=== PATIENT | female | born 1990 | race Hispanic/Latino ===

== ENCOUNTER 2019-08-27 18:58 | Emergency (ER) | payer SELFPAY ==
--- OUTSIDE RECORDS SUMMARY | 2019-08-27 19:00 | XMS REPORT ---
:1990 Author Organization [facility] Address [address] [place] [id number] Phone Allergies, Adverse Reactions, Alerts Allergy Name Reaction Description Start Date Severity Status Provider No Known Allergies Mae Riggs MA Conditions or Problems Problem Name Problem Onset Status Entry Provider Comment Standard Annotate Code Date Date Description Nausea 787.02 Active Chelsie Nausea alone / Prachi BLACKBURN BMI Active Chelsie Body Mass Index 24.0-24.9 Prachi BLACKBURN between 19-24, adult IUD removal V25.12 Active Chelsie Encounter for / Prachi BLACKBURN removal of intrauterine contraceptive device Pelvic pain 625.9 Active Chelsie Unspecified Prachi BLACKBURN symptom associated with female genital organs Vaginal 623.5 Active Chelsie Leukorrhea, not discharge Prachi BLACKBURN specified as infective Medication List Medication Instructions Start Stop Generic NDC Status Provider Patient Date Date Name Instruction FLAGYL 500 1 Tab PO METRONIDAZOLE [id number] Active Chelsie Active MG ORAL BID x 7 Prachi BLACKBURN TABLET Days Vital Signs Date Name Value Unit Range Description blood pressure, diastolic 64 mm[Hg] BP moore blood pressure, systolic 106 mm[Hg] BP sys height E&M 64 [in_us] Bdy height pulse rate E&M 61 /min Heart rate temperature E&M 98.2 [degF] Body temperature weight E&M 141 [lb_av] Weight Measured blood pressure, diastolic 75 mm[Hg] BP moore blood pressure, systolic 110 mm[Hg] BP sys height E&M 64 [in_us] Bdy height pulse rate E&M 68 /min Heart rate temperature E&M 98.0 [degF] Body temperature weight E&M 142 [lb_av] Weight Measured blood pressure, diastolic 89 mm[Hg] BP moore blood pressure, systolic 120 mm[Hg] BP sys height E&M 64 [in_us] Bdy height pulse rate E&M 70 /min Heart rate temperature E&M 98.0 [degF] Body temperature weight E&M 142.25 [lb_av] Weight Measured blood pressure, diastolic 70 mm[Hg] BP moore blood pressure, systolic 107 mm[Hg] BP sys height E&M 64 [in_us] Bdy height pulse rate E&M 71 /min Heart rate respiratory rate E&M 17 /min Resp rate temperature E&M 98.2 [degF] Body temperature weight E&M 141 [lb_av] Weight Measured Diagnostic Results Date Name Value Unit Range Description Office Visit: Acute Visit #8 - Urinalysis urine color yellow Lab Report: Ct, Ng, Trich vag by SHUBHAM, Urine Culture, Routine, Result - Microbiology Neisseria gonorrhoeae DNA probe Negative Negative Lab Report: Urine Culture, Routine, Result - Urinalysis urine culture No growth Office Visit: Acute Visit #8 - Urinalysis bilirubin, urine negative glucose, urine, semiquantitative negative protein, urine, semiquantitative (dipstick) negative Office Visit: Acute Visit #11 - Chemistry beta HCG, urine, semiquantitative negative Lab Report: Vaginitis/Vaginosis, DNA Probe - Urinalysis trichomonas vaginalis, urine Negative Negative Office Visit: Acute Visit #8 - Urinalysis blood in urine (hemoglobin) by dipstick trace appearance, urine clear Lab Report: Ct, Ng, Trich vag by SHUBHAM, Urine Culture, Routine, Result - Lab chlamydia DNA probe Negative Negative Office Visit: Acute Visit #8 - Urinalysis leukocyte esterase, urine, by dipstick negative urobilinogen, urine, semiquantitative (dipstick) 0.2 specific gravity, urine 1.025 pH, urine, semiquantitative 6.5 nitrite, urine, semiquantitative negative ketones, urine, by test strip negative Encounters Date Encounter Provider Code Facility Est Patient Exp Chelsie Velarde MD CPT-04249 [facility] 14:54:36 CDT Problem - 47932 Est Patient Exp Chelsie Velarde MD CPT-42384 [facility] 09:10:34 CDT Problem - 64269 Est Patient Exp Chelsie Velarde MD CPT-65047 [facility] 11:35:45 CDT Problem - 91343 New Patient Detailed Chelsie Velarde MD CPT-78155 [facility] 09:26:33 DOCUMENT PHOTOGRAPHER - 00194 Procedures Code Procedure Name Date Entry Date Standard Description CPT-41755 Urinalysis - Dip only - In [place] 09:10:32 CDT CPT-78371 Urinalysis - Dip only - In [place] 11:35:45 CDT CPT-00765 Urinalysis - - In [place] 11:35:43 CDT CPT-53309 IUD Removal 09:26:34 DOCUMENT PHOTOGRAPHER
--- OUTSIDE RECORDS SUMMARY | 2019-08-27 19:00 | XMS REPORT ---
:1990 Author Name Admin, [place] Address Unavailable Unavailable , PROBLEMS Condition Status Date Provider Notes Less than 8 weeks gestation of active Martell Jensen Supervision of normal multigravida active Martell Jensen , first trimester BMI 25 - 25.9, adult active Martell Jensen Nausea active Chelsie Prachi Pelvic pain active Chelsie Prachi Vaginal discharge active Chelsie Prachi IUD removal active Chelsie [place] BMI 24.0-24.9 active Chelsie [place] ENCOUNTERS Date Type Provider Location Encounter Diagnosis - Ambulatory Martell Jensen [facility] Encounter Martell Jensen - Ambulatory Martell Jensen [facility] BMI 25 - 25.9, Encounter Martell Jensen adultSupervision of Genesis Otto normal multigravida , first trimesterLess than 8 weeks gestation of - Ambulatory Chelsie [place] [facility] [facility] Encounter Chelsie [place] [employer] - Ambulatory Chelsie [place] [facility] Encounter Chelsie [place] BROADCAST TRAFFIC COORDINATOR Mae Riggs - Ambulatory Chelsie Prachi [place] [facility] Encounter Chelsie [place] BROADCAST TRAFFIC COORDINATOR - Ambulatory Chelsie [place] Encounter Chelsie Prachi BROADCAST TRAFFIC COORDINATOR [facility] - Ambulatory [place] Encounter Chelsie [place] [facility] - Ambulatory Chelsie [place] Encounter Chelsie Prachi [facility] - Ambulatory Chelsie Prachi [place] Encounter Chelsie [place] [facility] - Ambulatory Chelsie [place] Encounter Chelsie [place] BROADCAST TRAFFIC COORDINATOR - Ambulatory Shanell Casper [facility] Encounter - Ambulatory Chelsie Prachi [place] Encounter Chelsie [place] BROADCAST TRAFFIC COORDINATOR Jeaneth Gutierrez - Ambulatory Chelsie Prachi [place] Encounter Chelsie [place] - Ambulatory Chelsie [place] Encounter Chelsie Prachi [facility] - Ambulatory Chelsie Prachi [place] Encounter Chelsie Prachi BROADCAST TRAFFIC COORDINATOR - Ambulatory Chelsie Prachi [place] Encounter Chelsie [place] BROADCAST TRAFFIC COORDINATOR - Ambulatory Chelsie [place] Nausea Encounter Chelsie [place] BROADCAST TRAFFIC COORDINATOR Regine Cao Jeaneth Gutierrez - Ambulatory Mae [place] UNK Encounter Oneil Chelsie BROADCAST TRAFFIC COORDINATOR [place] Chelsie Prachi - Ambulatory Chelsie Prachi [place] UN[place] Encounter Chelsie [place] - Ambulatory Chelsie Prachi [place] UN[place] Encounter Chelsie [place] - Ambulatory Chelsie Prachi [place] UN[place] Encounter Chelsie [place] [facility] - Ambulatory Chelsie [place] UNK Encounter Chelsie [place] [facility] - Ambulatory Chelsie [place] UNK Encounter Chelsie Velarde BROADCAST TRAFFIC COORDINATOR - Ambulatory Chelsie [place] BMI 24.0-24.9IUD Encounter Chelsie Velarde BROADCAST TRAFFIC COORDINATOR removalVaginal Charla Minor dischargePelvic pain VITAL SIGNS No Information Available Allergies No Known Allergy Information REASON FOR REFERRAL No Information Available RESULTS Date Observation Value Provider Reference Interpretation Location Range Herpes Simplex no Genesis Otto Virus Genital " test, home Genesis Otto type trichomonas Negative [facility] vaginalis, urine " urine culture No growth [facility] blood in urine trace Jeaneth Gutierrez /09 (hemoglobin) by dipstick " pH, urine, 6.5 Jeaneth Gutierrez semiquantitative " specific gravity, 1.025 Jeaneth Gutierrez urine " glucose, urine, negative Jeaneth Gutierrez semiquantitative " bilirubin, urine negative Jeaneth Gutierrez " ketones, urine, by negative Jeaneth Gutierrez test strip " protein, urine, negative Jeaneth Gutierrez semiquantitative (dipstick) " urobilinogen, 0.2 Jeaneth Gutierrez urine, semiquantitative (dipstick) " nitrite, urine, negative Jeaneth Gutierrez semiquantitative " leukocyte esterase, negative Jeaneth Gutierrez urine, by dipstick " appearance, urine clear Jeaneth Gutierrez " urine color yellow Jeaneth Gutierrez urine culture No growth [facility] " Neisseria Negative [facility] Negative gonorrhoeae DNA probe " chlamydia DNA probe Negative [facility] Negative specific gravity, 1.020 Jeaneth Gutierrez urine " pH, urine, 6.0 Jeaneth Gutierrez semiquantitative " beta HCG, urine, negative Jeaneth Gutierrez semiquantitative " glucose, urine, negative Jeaneth Gutierrez semiquantitative " bilirubin, urine negative Jeaneth Gutierrez " ketones, urine, by negative Jeaneth Gutierrez test strip " blood in urine 5-10.valid Jeaneth Gutierrez (hemoglobin) by dipstick " protein, urine, negative Jeaneth Gutierrez semiquantitative (dipstick) " urobilinogen, negative Jeaneth Gutierrez urine, semiquantitative (dipstick) " nitrite, urine, negative Jeaneth Gutierrez semiquantitative " leukocyte esterase, negative Jeaneth Gutierrez urine, by dipstick " appearance, urine clear Jeaneth Gutierrez " urine color yellow Jeaneth Gutierrez Neisseria Negative [facility] Negative gonorrhoeae DNA probe " chlamydia DNA probe Negative [facility] Negative " trichomonas Negative [facility] Negative vaginalis, urine urine culture MUG [facility] HISTORY OF IMMUNIZATIONS No Information Available HISTORY OF MEDICATION USE Medication Instructions Dates Provider Comments KEFLEX 500 MG ORAL 1 tab By Mouth Three Martell Jensen CAPSULE Times a Day x 5 days FLAGYL 500 MG ORAL 1 Tab PO BID x 7 Days - Martell Jensen TABLET SOCIAL HISTORY Date Observation Value Provider smoking/tobacco cessation, Complete Martell Jensen patient education and counseling " currently in sexual only one partner at a time Genesis Fam relationship with " cat exposure during no Genesis Otto " Have you traveled to any No Genesislexa Otto zika virus infected areas? drug use, illicit Never Mae Riggs " alcohol use Never Mae Riggs " social history reviewed E&M reviewed today Mae Riggs " sexual orientation Heterosexual Mae Riggs " assessment of health Adequate Mae Oneil literacy ([facility] 2014 Standards, 3C10) " is there any chance that No Mae Oneil you could be ? " passive cigarette smoke No Mae Oneil exposure " smoking status never smoker Mae Riggs " Exercise Program Referral T Mae Riggs " Weight Management T Mae Oneil Counseling Provided " Nutrition intervention T Mae Oneil drug use, illicit Never Jeaneth Gutierrez " alcohol use Never Jeaneth Gutierrez " social history reviewed E&M reviewed today Jeaneth Gutierrez " sexual orientation Heterosexual Jeaneth Gutierrez " assessment of health Adequate Jeaneth Gutierrez literacy ([facility] 2014 Standards, 3C10) " is there any chance that No Jeaneth Gutierrez you could be ? " passive cigarette smoke No Jeaneth Gutierrez exposure " smoking status never smoker Jeanteh Gutierrez " Exercise Program Referral T Jeaneth Gutierrez " Weight Management T Jeaneth Gutierrez Counseling Provided " Nutrition intervention T Jeaneth Gutierrez patient considered to be No Jeaneth Gutierrez homeless " drug use, illicit Never Jeaneth Gutierrez " alcohol use Never Jeaneth Gutierrez " social history reviewed E&M reviewed today Jeaneth Gutierrez " sexual orientation Heterosexual Jeaneth Gutierrez " assessment of health Adequate Jeaneth Gutierrez literacy ([facility] 2014 Standards, 3C10) " is there any chance that No Jeaneth Gutierrez you could be ? " passive cigarette smoke No Jeaneth Gutierrez exposure " smoking status never smoker Jeaneth Gutierrez " Exercise Program Referral T Jeaneth Gutierrez " Weight Management T Jeaneth Gutierrez Counseling Provided " Nutrition intervention T Jeaneth Gutierrez " assessment of health Adequate Charla Minor literacy ([facility] 2014 Standards, 3C10) " is there any chance that No Charla Minor you could be ? " passive cigarette smoke No Charla Minor exposure " smoking status never smoker Charla Minor FUNCTIONAL STATUS No Information Available MENTAL STATUS Date Observation Value Provider assessment of mood and affect no depression Martell Jensen E&M " mental status examination: recent and remote memory Martell Jensen recall E&M intact " mental status examination: alert Martell Jensen orientation E&M " assessment of judgment and normal judgement and Martell Jensen insight E&M insight assessment of mood and affect no depression, anxiety, Chelsie Prachi E&M or agitation " Generalized Anxiety Disorder 0 Mae Oneil Questionnaire - Question 2 " Generalized Anxiety Disorder 0 Mae Oneil Questionnaire - Question 1 assessment of mood and affect no depression, anxiety, Chelsie [place] E&M or agitation assessment of mood and affect no depression, anxiety, Chelsie [place] E&M or agitation Generalized Anxiety Disorder 0 Charla Minor Questionnaire - Question 2 " Generalized Anxiety Disorder 0 Charla Minor Questionnaire - Question 1 MEDICAL EQUIPMENT No Information Available FAMILY HISTORY No Information Available INSURANCE PROVIDERS Payer name Policy type / Coverage type Covered alliance party ID Sliding Fee - Cat 1 [employer] insurance [employer] [id number] Family Planning Program Medicaid [id number] ADVANCE DIRECTIVES No Information Available TREATMENT PLAN Date Name Urine Culture, Routine RPR, Rfx Qn RPR/Confirm TP HIV 1/2 ANTIGEN/ANTIBODY, FOURTH GENERATION W/RFL HBsAg Screen Gc/Ct/Trich CBC With Differential/Platelet ANTIBODY SCREEN, RBC W/REFL ID, TITER AND AG ABO Grouping and Rho(D) Typing Vaginitis/Vaginosis, DNA Probe (Affirm) ([facility]) Urine Culture, Routine Helicobacter Pylori Urea Breath Test H. pylori Stool Ag, EIA Helicobacter Pylori Urea Breath Test Urine Culture, Routine Gc/Ct/Trich (Urine) Urine Culture, Routine Vaginitis/Vaginosis, DNA Probe (Affirm) ([facility]) Gc/Ct/Trich - Ultrasound of Uterus- 1st trimester New Patient Detailed - 26761 New Patient Detailed - 21567 Vaccines Ordered - Print Consent/Declination Forms Est Patient Exp Problem - 58264 Est Patient Exp Problem - 93324 Urinalysis - Dip only - In House Est Patient Exp Problem - 71215 Urinalysis - Dip only - In House Urinalysis - - In House IUD Removal New Patient Detailed - 10041 HISTORY OF PROCEDURES Procedure Date Procedure Name Provider Procedure Notes Status Ultrasound of Martell Jensen completed Uterus- 1st trimester Vaccines Ordered - Print Martell Jensen completed Consent/Declination Forms Urinalysis - Dip only - In Chelsie Prachi completed House Urinalysis - Dip only - In Chelsie Prachi completed House Urinalysis - - In Chelsie Prachi completed House IUD Removal Chelsie [place] completed GOALS No Information Available HEALTH CONCERNS No Information Available
--- OUTSIDE RECORDS SUMMARY | 2019-08-27 19:01 | XMS REPORT ---
:1990 Author Name Admin, [place] Address Unavailable Unavailable , PROBLEMS Condition Status Date Provider Notes Less than 8 weeks gestation of active Martell Jensen Supervision of normal multigravida active Martell Jensen , first trimester BMI 25 - 25.9, adult active Matrell Jensen Nausea active Chelsie Utqi[place]vik Pelvic pain active Chelsie Utqi[place]vik Vaginal discharge active Chelsie [place] IUD removal active Chelsie [place] BMI 24.0-24.9 active Chelsie Prachi ENCOUNTERS Date Type Provider Location Encounter Diagnosis - Ambulatory Martell Jensen [facility] UNK Encounter Martell Jensen [facility] - Ambulatory Martell Jensen [facility] OB UNK Encounter Martell Jensen [facility] - Ambulatory Martell Jensen [facility] OB UNK Encounter Martell Jensen [facility] - Ambulatory Martell Jensen [facility] OB UNK Encounter Martell Jensen - Ambulatory Martell Jensen [facility] OB BMI 25 - 25.9, Encounter Martell Jensen adultSupervision of Genesis Otto normal multigravida , first trimesterLess than 8 weeks gestation of - Ambulatory Chelsie Prachi [place] UNK Encounter Chelsie Utqiagvik TECHNICAL SUPPORT TECHNICIAN - Ambulatory Chelsie Prachi [place] UNK Encounter Chelsie Prachi TECHNICAL SUPPORT TECHNICIAN Mae Riggs - Ambulatory Chelsie Utqiagvik [place] UNK Encounter Hcelsie Utqiagvik TECHNICAL SUPPORT TECHNICIAN - Ambulatory Chelsie Utqiagvik [place] UNK Encounter Chelsie Prachi TECHNICAL SUPPORT TECHNICIAN [facility] - Ambulatory Chelsie Utqiagvik [place] UNK Encounter Chelsie Utqiagvik [facility] - Ambulatory Chelsie Utqiagvik [place] UNK Encounter Chelsie Utqiagvik [facility] - Ambulatory Chelsie Utqiagvik [place] UNK Encounter Chelsie Utqiagvik [facility] - Ambulatory Chelsie Utqiagvik [place] UNK Encounter Chelsie Prachi TECHNICAL SUPPORT TECHNICIAN - Ambulatory Shanell Freemand [facility] OB UNK Encounter - Ambulatory Chelsie Utqiagvik [place] UNK Encounter Chelsie Prachi TECHNICAL SUPPORT TECHNICIAN Jeaneth Gutierrez - Ambulatory Chelsie Prachi [place] UNK Encounter Chelsie Utqiagvik - Ambulatory Chelsie Utqiagvik [place] UNK Encounter Chelsie Utqiagvik [facility] - Ambulatory Chelsie Utqiagvik [place] UNK Encounter Chelsie Utqiagvik TECHNICAL SUPPORT TECHNICIAN - Ambulatory Chelsie Utqiagvik [place] UNK Encounter Chelsie Prachi TECHNICAL SUPPORT TECHNICIAN - Ambulatory Chelsie Utqi[place]vik [place] Nausea Encounter Chelsie Utqi[place] TECHNICAL SUPPORT TECHNICIAN Regine Cao Jeaneth Gutierrez - Ambulatory Mae [place] UNK Encounter Oneil Chelsie TECHNICAL SUPPORT TECHNICIAN Prachi Chelsie Prachi - Ambulatory Chelsie Utqiagvik [place] UNK Encounter Chelsie Utqiagvik - Ambulatory Chelsie Utqiagvik [place] UNK Encounter Chelsie Prachi - Ambulatory Chelsie [place] UNK Encounter Chelsie Velarde [facility] - Ambulatory Chelsie Skaggs UNK Encounter Chelsie Velarde [facility] - Ambulatory Chelsie Skag[place] UNK Encounter Chelsie Garciat TECHNICAL SUPPORT TECHNICIAN - Ambulatory Chelsie Skaggs BMI 24.0-24.9IUD Encounter Chelsie Velarde TECHNICAL SUPPORT TECHNICIAN removalVaginal Charla Minor dischargePelvic pain VITAL SIGNS No Information Available Allergies No Known Allergy Information REASON FOR REFERRAL No Information Available RESULTS Date Observation Value Provider Reference Interpretation Location Range urine culture No growth [facility] urine culture No growth [facility] hepatitis B surface Negative [facility] Negative antigen " Rh antibody Negative [facility] Negative " HIV-CMIA Non [facility] Non Reactive (Chemiluminescent Reactive Microparticle Immuno Assay) " rapid plasma reagin Non [facility] Non Reactive antibody, serum Reactive " Rh antigen Positive [facility] " ABO blood group O [facility] " immature 0 % [facility] Not Estab. granulocytes, percentage of total cells, blood " basophil count, 0.0 [facility] 0.0-0.2 absolute x10E3/uL " Eosinophil Absolute 0.2 [facility] 0.0-0.4 Count X10E3/UL " monocyte count, 0.5 [facility] 0.1-0.9 blood, automated X10E3/UL " lymphocyte count, 2.8 [facility] 0.7-3.1 blood, automated X10E3/UL " Absolute 5.9 [facility] 1.4-7.0 Neutrophils X10E3/UL " basophils as 0 % [facility] Not Estab. percent of blood leukocytes " eosinophils as 2 % [facility] Not Estab. percent of blood leukocytes " monocytes as 5 % [facility] Not Estab. percent of blood leukocytes " lymphocytes as 30 % [facility] Not Estab. percent of blood leukocytes " neutrophils as 63 % [facility] Not Estab. percent of blood leukocytes " platelet count 246 [facility] 150-450 X10E3/UL " red blood cell 14.1 % [facility] 12.3-15.4 distribution width " mean corpuscular 32.5 G/DL [facility] 31.5-35.7 hemoglobin concentration, RBC " mean corpuscular 28.7 pg [facility] 26.6-33.0 hemoglobin, RBC " mean corpuscular 88 fL [facility] 79-97 volume, RBC " hematocrit, blood 38.1 % [facility] 34.0-46.6 " hemoglobin, blood 12.4 g/dL [facility] 11.1-15.9 " erythrocyte (RBC) 4.32 [facility] 3.77-5.28 count X10E6/UL " leukocyte count, 9.4 [facility] 3.4-10.8 blood X10E3/UL Herpes Simplex no Genesis Otto Virus Genital " test, home Genesis Otto type trichomonas Negative [facility] Negative vaginalis, urine " urine culture No growth [facility] blood in urine trace Jeaneth Gutierrez (hemoglobin) by dipstick " pH, urine, 6.5 [...] Observation Value Provider smoking/tobacco cessation, Complete Martell Jnesen patient education and counseling " currently in sexual only one partner at a time Genesislexa Otto relationship with " cat exposure during no Genesis Otto " Have you traveled to any No Genesis Otto zika virus infected areas? drug use, illicit Never Mae Riggs " alcohol use Never Mae Oneil " social history reviewed E&M reviewed today Mae Riggs " sexual orientation Heterosexual Mae Riggs " assessment of health Adequate Mae Riggs literacy ([facility] 2014 Standards, 3C10) " is there any chance that No Mae Riggs you could be ? " passive cigarette smoke No Mae Oneil exposure " smoking status never smoker Mae Riggs " Exercise Program Referral T Mae Riggs " Weight Management T Mae Riggs Counseling Provided " Nutrition intervention T Mae Riggs drug use, illicit Never Jeaneth Gutierrez " alcohol use Never Jeaneth Gutierrez " social history reviewed E&M reviewed today Jeaneth Gutierrez " sexual orientation Heterosexual Jeaneth Gutierrez " assessment of health Adequate Jeaneth Gutierrez literacy ([facility] 2014 Standards, 3C10) " is there any chance that No Jeaneth Gutierrez you could be ? " passive cigarette smoke No Jeaneth Gutierrez exposure " smoking status never smoker Jeaneth Gutierrez " Exercise Program Referral T Jeaneth Gutierrez " Weight Management T Jeaneth Gutierrez Counseling Provided " Nutrition intervention T Jeaneth Allenon patient considered to be No Jeaneth Gutierrez homeless " drug use, illicit Never Jeaneth Gutierrez " alcohol use Never Jeaneth Gutierrez " social history reviewed E&M reviewed today Jeaneth Gutierrez " sexual orientation Heterosexual Jeaneth Gutierrez " assessment of health Adequate Jeaneth Gutierrez literacy ([facility] 2014 Standards, 3C10) " is there any chance that No Jeaneth Gutierrez you could be ? " passive cigarette smoke No Jeaneth Gutierrez exposure " smoking status never smoker Jeaneth Gutierrez " Exercise Program Referral T Jeaneth Gutierrez " Weight Management T Jeaneth Allenon Counseling Provided " Nutrition intervention T Jeaneth Gutierrez " assessment of health Adequate Charla Minor literacy ([facility] 2014 Standards, 3C10) " is there [...] mood and affect no depression, anxiety, Chelsie Utqiagvik E&M or agitation " Generalized Anxiety Disorder 0 Mae Oneil Questionnaire - Question 2 " Generalized Anxiety Disorder 0 Mae Riggs Questionnaire - Question 1 assessment of mood and affect no depression, anxiety, Chelsie [place] E&M or agitation assessment of mood and affect no depression, anxiety, Chelsie [place] E&M or agitation Generalized Anxiety Disorder 0 Charla Minor Questionnaire - Question 2 " Generalized Anxiety Disorder 0 Charla Minor Questionnaire - Question 1 MEDICAL EQUIPMENT No Information Available FAMILY HISTORY No Information Available INSURANCE PROVIDERS Payer name Policy type / Coverage type Covered alliance party ID Sliding Fee - Cat 1 [employer] insurance [employer]hub [id number] Family Planning Program Medicaid [id number] ADVANCE DIRECTIVES No Information Available TREATMENT PLAN [...] Uterus- 1st trimester New Patient Detailed - 47684 New Patient Detailed - 92110 Vaccines Ordered - Print Consent/Declination Forms Est Patient Exp Problem - 05235 Est Patient Exp Problem - 27623 Urinalysis - Dip only - In House Est Patient Exp Problem - 10323 Urinalysis - Dip only - In House Urinalysis - - In House IUD Removal New Patient Detailed - 78562 HISTORY OF PROCEDURES Procedure Date Procedure Name Provider Procedure Notes Status Ultrasound of Martell Jensen completed Uterus- 1st trimester Vaccines Ordered - Print Martell Jensen completed Consent/Declination Forms Urinalysis - Dip only - In Chelsie [place]qi[place] completed House Urinalysis - Dip only - In Chelsie [place] completed House Urinalysis - - In Chlesie Utqiag[place] completed House IUD Removal Chelsie Baumanrant completed GOALS No Information Available HEALTH CONCERNS No Information Available
--- OUTSIDE RECORDS SUMMARY | 2019-08-27 19:02 | XMS REPORT ---
:1990 Author Name Admin, [place] Address Unavailable Unavailable , PROBLEMS Condition Status Date Provider Notes 9 weeks gestation of active Martell Jensen Supervision of normal active Martell Jensen multigravida , first trimester BMI 25 - 25.9, adult active Martell Jensen Nausea completed - Martell Jensen Pelvic pain completed - Martell Jensen Vaginal discharge completed - Martell Jensen IUD removal completed - Martell Jensen BMI 24.0-24.9 completed - Martell Jensen ENCOUNTERS Date Type Provider Location Encounter Diagnosis - Ambulatory Martell Jensen [facility] OB BMI 24.0-24.9IUD Encounter Martell Jensen removalVaginal Briseyda Servin dischargePelvic painNausea9 weeks gestation of - Ambulatory Martell Jensen [facility] UNK Encounter Martell Jensen [facility] - Ambulatory Martell Jensen [facility] UNK Encounter Martell Jesnen [facility] - Ambulatory Martell Jensen [facility] OB UNK Encounter Martell Jensen [facility] - Ambulatory Martell Jensen [facility] OB UNK Encounter Martell Jensen [facility] - Ambulatory Martell Jensen [facility] OB UNK Encounter Martell Jensen [facility] - Ambulatory Martell Jensen [facility] OB UNK Encounter Martell Jensen - Ambulatory Martell Jensen [facility] OB BMI 25 - 25.9, Encounter Martell Jensen adultSupervision of Genesis Otto normal multigravida , first trimester9 weeks gestation of - Ambulatory [facility]sie [facility] [place] UNK Encounter PHOTOGRAPHY SPOTTER - Ambulatory Chelsie Prachi [place] UNK Encounter Mae PHOTOGRAPHY SPOTTER Oneil - Ambulatory [facility] [place] UNK Encounter PHOTOGRAPHY SPOTTER - Ambulatory Chelsie Prachi [place] UNK Encounter [facility]ic PHOTOGRAPHY SPOTTER - Ambulatory Chelsie Prachi [place] UNK Encounter [facility] - Ambulatory [facility] [place] UNK Encounter [facility] - Ambulatory Chelsie Prachi [place] UNK Encounter [facility]ic - Ambulatory Chelsie Prachi [place] UNK Encounter PHOTOGRAPHY SPOTTER - Ambulatory Shanell [facility] UNK Encounter - Ambulatory [facility] [place] UNK Encounter Jeaneth Gutierrez PHOTOGRAPHY SPOTTER - Ambulatory [facility] [place] UNK Encounter - Ambulatory Chel[facility] [place] UNK Encounter [facility] - Ambulatory [facility] [place] UNK Encounter PHOTOGRAPHY SPOTTER - Ambulatory [facility] [place] UNK Encounter PHOTOGRAPHY SPOTTER - Ambulatory Chelsie Prachi [place] Nausea Encounter Regine Mcmullen PHOTOGRAPHY SPOTTER Minda Gutierrez - Ambulatory Mae [place] UNK Encounter Oneil Holguin PHOTOGRAPHY SPOTTER Prachi - Ambulatory Chelsie Prachi [place] UNK Encounter - Ambulatory Chelsie Prachi [place] UNK Encounter - Ambulatory Chelsie Skag[place] UNK Encounter LinkLogic - Ambulatory Chelsie Skaggs UNK Encounter [facility]Logic - Ambulatory Chelsie Skaggs UNK Encounter PHOTOGRAPHY SPOTTER - Ambulatory Chelsie Skaggs BMI 24.0-24.9IUD Encounter Charla Minor PHOTOGRAPHY SPOTTER removalVaginal dischargePelvic pain VITAL SIGNS Date Observation Value Provider weight change since last visit 2.60 lbs. Briseyda Servin " blood pressure, diastolic 72 mm[Hg] Briseyda Servin " blood pressure, systolic 110 mm[Hg] Briseyda Servin " pulse rate E&M 68 /min Briseyda Servin " blood pressure, cuff size Adult 29-42 cm Briseyda Servin " temperature site oral Briseyda Servin " temperature E&M 98 [degF] Briseyda Servin " weight E&M 148 lbs. Briseyda Servin " height E&M 64 [in_i] Briseyda Servin weight change since last visit 4.40 lbs. Genesis Otto " blood pressure, diastolic 81 mm[Hg] Genesis Otto " blood pressure, systolic 122 mm[Hg] Genesis Otto " pulse rate E&M 71 /min Genesis Otto " temperature E&M 98.5 [degF] Genesis Otto " weight E&M 145.4 lbs. Genesis Otto " blood pressure, cuff size Adult 29-42 cm Genesis Otto " temperature site oral Genessi Otto " height E&M 64 [in_i] Genesis Otto blood pressure, diastolic 64 mm[Hg] Mae Riggs " blood pressure, systolic 106 mm[Hg] Mae Riggs " oxygen saturation, oximetry 99 % Mae Riggs " pulse rate E&M 61 /min Mae Riggs " temperature E&M 98.2 [degF] Mae Riggs " method used to obtain blood pressure automatic Mae Riggs " Blood Pressure Position 01 sitting Mae Riggs " blood pressure, site #1 left arm Mae Oneil " temperature site oral Mae Oneil " height E&M 64 [in_i] Mae Oneil " height in centimeters E&M 162.56 cm Mae Oneil " weight E&M 141 lbs. Mae Oneil " weight in kilograms E&M 64.09 kg Maethomas Riggs oxygen saturation, oximetry 98 % Jeaneth Gutierrez " blood pressure, diastolic 75 mm[Hg] Jeaneth Gutierrez " blood pressure, systolic 110 mm[Hg] Jeaneth Gutierrez " pulse rate E&M 68 /min Jeaneth Gutierrez " temperature E&M 98.0 [degF] Jeaneth Gutierrez " weight E&M 142 lbs. Jeaneth Gutierrez " weight in kilograms E&M 64.55 kg Jeaneth Gutierrez " method used to obtain blood pressure automatic Jeaneth Gutierrez " Blood Pressure Position 01 sitting Jeaneth Gutierrez " blood pressure, site #1 left arm Jeaneth Gutierrez " temperature site oral Jeaneth Gutierrez " height E&M 64 [in_i] Jeaneth Gutierrez " height in centimeters E&M 162.56 cm Jeanethbianca Allenon oxygen saturation, oximetry 98 % Jeaneth Gutierrez " blood pressure, diastolic 89 mm[Hg] Jeaneth Gutierrez " blood pressure, systolic 120 mm[Hg] Jeaneth Gutierrez " pulse rate E&M 70 /min Jeaneth Gutierrez " temperature E&M 98.0 [degF] Jeaneth Gutierrez " weight E&M 142.25 lbs. Jeaneth Gutierrez " weight in kilograms E&M 64.66 kg Jeaneth Gutierrez " method used to obtain blood pressure automatic Jeaneth Gutierrez " Blood Pressure Position 01 sitting Jeanethbianca Gutierrez " blood pressure, site #1 left arm Jeaneth Gutierrez " temperature site oral Jeaneth Gutierrez " height E&M 64 [in_i] Jeaneth Gutierrez " height in centimeters E&M 162.56 cm Jeanethbianca Allenon respiratory rate E&M 17 /min Charla Minor " pulse rate E&M 71 /min Charla Minor " oxygen saturation, oximetry 98 % Charla Minor " blood pressure, diastolic 70 mm[Hg] Charla Minor " blood pressure, systolic 107 mm[Hg] Charla Minor " temperature E&M 98.2 [degF] Charla Zuniga " weight E&M 141 lbs. Charla Zuniga " weight in kilograms E&M 64.09 kg Charla Zuniga " height in centimeters E&M 162.56 cm Charla Zuniga " height E&M 64 [in_i] Charla Zuniga " method used to obtain blood pressure automatic Charla Zuniga " Blood Pressure Position 01 sitting Charla Zuniga " blood pressure, site #1 right arm Charla Zuniga " temperature site oral Charla Zuniga Allergies No Known Allergy Information REASON FOR REFERRAL No Information Available RESULTS Date Observation Value Provider Reference Interpretation Location Range Neisseria Negative [facility] Negative gonorrhoeae DNA probe " chlamydia DNA probe Negative [facility] Negative urine culture No growth [facility] urine culture [...] [facility] 3.4-10.8 blood X10E3/UL Herpes Simplex no Genesislexa Colónes Virus Genital " test, home Genesis Otto [...] MG ORAL 1 tab By Mouth Three - Martell Jensen CAPSULE Times a Day x 5 days FLAGYL 500 MG ORAL 1 Tab PO BID x 7 Days - Martell Jensen TABLET SOCIAL HISTORY Date Observation Value Provider Have you traveled to any No [facility] zika virus infected areas? smoking/tobacco cessation, Complete Martell Jensen patient education and counseling " currently in sexual only one partner at a time Genesislexa Otto relationship with " cat exposure during no Genesis Otto " Have you traveled to any No Genesis Otto zika virus infected areas? drug use, illicit Never Mae Oneil " alcohol use Never Mae Oneil " social history reviewed E&M reviewed today Mae Riggs " sexual orientation Heterosexual Mae Riggs " assessment of health Adequate Mae Riggs literacy ([facility] 2014 Standards, 3C10) " is [...] assessment of health Adequate Jeaneth Gutierrez literacy ([facility] 2014 Standards, 3C10) " is [...] assessment of health Adequate Jeaneth Gutierrez literacy ([facility] 2014 Standards, 3C10) " is there any chance that No Jeaneth Gutierrez you could be ? " passive cigarette smoke No Jeaneth Gutierrez exposure " smoking status never smoker Jeaneth Gutierrez " Exercise Program Referral T Jeaneth Gutierrez " Weight Management T Jeaneth Allenon Counseling Provided " Nutrition intervention T Jeaneth Gutierrez " assessment of health Adequate Charla Minor literacy ([facility] 2014 Standards, 3C10) " is [...] mood and affect no depression, anxiety, Chelsie [facility] E&M or agitation assessment of mood and affect no depression, anxiety, Chelsie [facility] E&M or agitation Generalized Anxiety Disorder 0 Charla Minor Questionnaire - Question 2 " Generalized Anxiety Disorder 0 Charla Minor Questionnaire - Question 1 MEDICAL EQUIPMENT No Information Available FAMILY HISTORY No Information Available INSURANCE PROVIDERS Payer name Policy type / Coverage type Covered democrat ID Medicaid Pending Medicaid Title X Other [id number] Family Planning Program Medicaid [id number] Sliding Fee - Cat 1 [employer] insurance [employer] [id number] ADVANCE DIRECTIVES No Information Available TREATMENT PLAN [...] Gc/Ct/Trich - Ultrasound of Uterus- 1st trimester Est Patient Exp Problem - 29017 Ultrasound of Uterus- 1st trimester New Patient Detailed - 88573 New Patient Detailed - 45853 Vaccines Ordered - Print Consent/Declination Forms Est Patient Exp Problem - 60058 Est Patient Exp Problem - 39564 Urinalysis - Dip only - In House Est Patient Exp Problem - 92178 Urinalysis - Dip only - In House Urinalysis - - In House IUD Removal New Patient Detailed - 05151 HISTORY OF PROCEDURES Procedure Date Procedure Name Provider Procedure Notes Status Ultrasound of Martell Jensen completed Uterus- 1st trimester Ultrasound of Martell Jensen completed Uterus- 1st trimester Vaccines Ordered - Print Martell Jensen completed Consent/Declination Forms Urinalysis - Dip only - In Chelsie Velarde completed House Urinalysis - Dip only - In Chelsie Velarde completed House Urinalysis - - In Chelsie Velarde completed [place] IUD Removal Chelsie Velarde completed GOALS No Information Available HEALTH CONCERNS No Information Available
--- OUTSIDE RECORDS SUMMARY | 2019-08-27 19:03 | XMS REPORT ---
:1990 Author Name Admin, Holman Address Unavailable Unavailable , PROBLEMS Condition Status [...] Location Encounter Diagnosis - Ambulatory Martell Jensen [facility] OB BMI 24.0-24.9IUD Encounter Martell Jensen removalVaginal Briseyda Servin dischargePelvic painNausea9 weeks gestation of - Ambulatory Martell Jensen [facility] OB UNK Encounter Martell Jensen [facility] - Ambulatory Martell Jensen [facility] OB UNK Encounter Martell Jensen [facility] - Ambulatory Martell Jensen [facility] OB UNK Encounter Martell Jensen [facility] - Ambulatory Martell Jensen [facility] OB UNK Encounter Martell Jensen [facility] - Ambulatory Martell Jensen [facility] OB UNK Encounter Martell Jensen [facility] - Ambulatory Martell Jensen [facility] OB UNK Encounter Martell Jensen - Ambulatory Martell Jensen [facility] OB BMI 25 - 25.9, Encounter Martell Jensen adultSupervision of Genesis Otto normal multigravida , first trimester9 weeks gestation of - Ambulatory Chelsie [place] UNK Encounter SAP FICO BUSINESS ANALYST - Ambulatory Chelsie Pr[place] UNK Encounter Mae SAP FICO BUSINESS ANALYST Oneil - Ambulatory Chelsie [place] UNK Encounter SAP FICO BUSINESS ANALYST - Ambulatory Chelsie [place] UNK Encounter LinkLogic SAP FICO BUSINESS ANALYST - Ambulatory Chelsie Prachi [place] UNK Encounter [facility]Log[facility] - Ambulatory Chelsie [place] UNK Encounter LinkLogic - Ambulatory Chelsie Prachi [place] UNK Encounter LinkLogic - Ambulatory Chelsie Prachi [place] UNK Encounter SAP FICO BUSINESS ANALYST - Ambulatory Shanell Shirley [facility] OB UNK Encounter - Ambulatory Chelsie [place] UNK Encounter Jeaneth Gutierrez SAP FICO BUSINESS ANALYST - Ambulatory Chelsie [place] UNK Encounter - Ambulatory Chelsie [place] UNK Encounter LinkLogic - Ambulatory Chelsie [place] UNK Encounter SAP FICO BUSINESS ANALYST - Ambulatory Chelsie [place] UNK Encounter SAP FICO BUSINESS ANALYST - Ambulatory Chelsie Prachi [place] Nausea Encounter Regine Mcmullen SAP FICO BUSINESS ANALYST Minda Gutierrez - Ambulatory Mae [place] UNK Encounter Oneil Holguin SAP FICO BUSINESS ANALYST Prachi - Ambulatory Chelsie [place] UNK Encounter - Ambulatory Chelsie [place] UNK Encounter - Ambulatory Chelsie [place] UNK Encounter LinkLogic - Ambulatory Chelsie [place] UNK Encounter [facility] - Ambulatory Chelsie [place] UNK Encounter SAP FICO BUSINESS ANALYST - Ambulatory Chelsie [place] BMI 24.0-24.9IUD Encounter Charla Minor SAP FICO BUSINESS ANALYST removalVaginal dischargePelvic pain VITAL SIGNS Date Observation [...] cm Genesis Otto " temperature site oral Genesis Otto " height E&M 64 [in_i] Genesis [...] Provider Have you traveled to any No [facility] zika virus infected areas? smoking/tobacco cessation, Complete [...] assessment of health Adequate Mae Riggs literacy ([facility] 2014 Standards, 3C10) " is there any [...] assessment of health Adequate Jeaneth Gutierrez literacy ([facility] 2014 Standards, 3C10) " is there any [...] assessment of health Adequate Jeaneth Gutierrez literacy ([facility] 2014 Standards, 3C10) " is there any chance that No Jeaneth Gutierrez you could be ? " passive cigarette smoke No Jeaneth Gutierrez exposure " smoking status never smoker Jeaneth Gutierrez " Exercise Program Referral T Jeaneth Gutierrez " Weight Management T Jeaneth Allenon Counseling Provided " Nutrition intervention T Jeaneth Gutierrez " assessment of health Adequate Charla Minor literacy ([facility] 2014 Standards, 3C10) " is there any [...] mood and affect no depression, anxiety, Chelsie [place] E&M or agitation assessment of mood and affect no depression, anxiety, Chelsie [place] E&M or agitation Generalized Anxiety Disorder 0 Charla Minor Questionnaire - Question 2 " Generalized Anxiety Disorder 0 Charla Minor Questionnaire - Question 1 MEDICAL EQUIPMENT No Information Available FAMILY HISTORY No Information Available INSURANCE PROVIDERS Payer name Policy type / Coverage type Covered constitution party ID Medicaid Pending Medicaid Title X Other [id number] Family Planning Program Medicaid [id number] Sliding Fee - Cat 1 [employer] insurance QR Wild [id number] ADVANCE DIRECTIVES No Information Available TREATMENT PLAN [...] 1st trimester Est Patient Exp Problem - 24550 Ultrasound of Uterus- 1st trimester New Patient Detailed - 60224 New Patient Detailed - 38004 Vaccines Ordered - Print Consent/Declination Forms Est Patient Exp Problem - 04787 Est Patient Exp Problem - 17498 Urinalysis - Dip only - In House Est Patient Exp Problem - 48724 Urinalysis - Dip only - In House Urinalysis - - In House IUD Removal New Patient Detailed - 86590 HISTORY OF PROCEDURES Procedure Date Procedure Name Provider Procedure Notes Status Ultrasound of Martell Jensen completed Uterus- 1st trimester Ultrasound of Martell Jensen completed Uterus- 1st trimester Vaccines Ordered - Print Martell Jensen completed Consent/Declination Forms Urinalysis - Dip only - In Chelsie Velarde completed House Urinalysis - Dip only - In Chelsie Velarde completed House Urinalysis - - In Chelsie Velarde completed [place] IUD Removal Chelsie Velarde completed GOALS No Information Available HEALTH CONCERNS No Information Available
--- OUTSIDE RECORDS SUMMARY | 2019-08-27 19:03 | XMS REPORT ---
:1990 Author Name Admin, Toutle Address Unavailable Unavailable , PROBLEMS Condition Status [...] Type Provider Location Encounter Diagnosis - Ambulatory Alicia Davisay [facility] OB UNK Encounter - Ambulatory Martell Jensen [facility] OB UNK Encounter Martell Jensen [facility] - Ambulatory Martell Jensen [facility] OB BMI 24.0-24.9IUD Encounter Martell Jensen removalVaginal Briseyda Servin dischargePelvic painNausea9 weeks gestation of - Ambulatory Martell Jensen [facility] OB UNK Encounter Martell Jensen [facility] - Ambulatory Martell Jensen [facility] OB UNK Encounter Martell Jensen [facility] - Ambulatory Martell Jensen [facility] OB UNK Encounter Martell Jensen [facility] - Ambulatory Martell Jensen [facility] OB UNK Encounter Martell Jensen [facility] - Ambulatory Martell Jensen [facility] OB UNK Encounter Martell Jensen [facility] - Ambulatory Martell Jensen [facility] OB UNK Encounter Martell Jensen - Ambulatory Martell Jensen [facility] OB BMI 25 - 25.9, Encounter Martelljinny Jensen adultSupervision of Genesis Otto normal multigravida , first trimester9 weeks gestation of - Ambulatory Chelsie [place] UNK Encounter FUNERAL PROFESSIONAL - Ambulatory Chelsie Prachi [place] UNK Encounter Mae FUNERAL PROFESSIONAL Oneil - Ambulatory Chelsie [place] UNK Encounter FUNERAL PROFESSIONAL - Ambulatory Chelsie Prachi [place] UNK Encounter LinkLogic FUNERAL PROFESSIONAL - Ambulatory Chelsie Prachi [place] UNK Encounter Link[facility] - Ambulatory Chelsie [place] UNK Encounter LinkLogic - Ambulatory Cheslie Prachi [place] UNK Encounter LinkLogic - Ambulatory Chelsie Prachi [place] UNK Encounter FUNERAL PROFESSIONAL - Ambulatory Shanell Casper [facility] OB UNK Encounter - Ambulatory Chelsie [place] UNK Encounter Jeaneth Gutierrez FUNERAL PROFESSIONAL - Ambulatory Chelsie [place] UNK Encounter - Ambulatory Chelsie Prachi [place] UNK Encounter LinkLogic - Ambulatory Chelsie Prachi [place] UNK Encounter FUNERAL PROFESSIONAL - Ambulatory Chelsie [place] UNK Encounter FUNERAL PROFESSIONAL - Ambulatory Chelsie [place] Nausea Encounter Regine Mcmullen FUNERAL PROFESSIONAL Minda Gutierrez - Ambulatory Mae [place] UNK Encounter Oneil Chelsie FUNERAL PROFESSIONAL [place] - Ambulatory Chelsie Prachi [place] UNK Encounter - Ambulatory Chelsie [place] UNK Encounter - Ambulatory Chelsie Prachi [place] UNK Encounter LinkLogic - Ambulatory Chelsie [place] UNK Encounter LinkLogic - Ambulatory Chelsie [place] UNK Encounter FUNERAL PROFESSIONAL - Ambulatory Chelsie Prachi [place] BMI 24.0-24.9IUD Encounter Charla Zuniga FUNERAL PROFESSIONAL removalVaginal dischargePelvic pain VITAL SIGNS Date Observation [...] " pulse rate E&M 61 /min Mae Oneil " temperature E&M 98.2 [degF] Mae Oneil " method used to obtain blood pressure automatic Mae Oneil " Blood Pressure Position 01 sitting Mae Oneil " blood pressure, site #1 left arm Mae Oneil " temperature site oral Maeelizabeth Riggs " height E&M 64 [in_i] Mae Oneil " height in centimeters E&M 162.56 cm Mae Oneil " weight E&M 141 lbs. Mae Oneil " weight in kilograms E&M 64.09 kg Maeelizabeth Riggs oxygen saturation, oximetry 98 % Jeaneth [...] " height in centimeters E&M 162.56 cm Jeaneth Gutierrez oxygen saturation, oximetry 98 % Jeaneth Gutierrez [...] " height in centimeters E&M 162.56 cm Jeaneth Gutierrez respiratory rate E&M 17 /min Charla Zuniga " pulse rate E&M 71 /min Charla Zuniga " oxygen saturation, oximetry 98 % Charla Zuniga " blood pressure, diastolic 70 mm[Hg] Charla Zuniga " blood pressure, systolic 107 mm[Hg] Charla Zuniga " temperature E&M 98.2 [degF] Charla Zuniga [...] LinkLogic 3.4-10.8 blood X10E3/UL Herpes Simplex no [facility] / Virus Genital " test, home Genesis Otto type trichomonas Negative [facility]Log[facility] Negative vaginalis, urine " urine culture No growth LinkLogic blood in urine trace (hemoglobin) by dipstick " pH, urine, 6.5 [...] Provider Have you traveled to any No Briseyda Servin zika virus infected areas? smoking/tobacco cessation, Complete Martell Jensen patient education and counseling " currently in sexual only one partner at a time Genesislexa Otto relationship with " cat exposure during no Genesislexa Otto " Have you traveled to any No Genesis Otto zika virus infected areas? drug use, illicit Never Mae Riggs " alcohol use Never Mae Riggs " social history reviewed E&M reviewed today Mae Riggs " sexual orientation Heterosexual Mae Riggs " assessment of health Adequate Mae Riggs literacy ([facility] 2014 Standards, 3C10) " is there any [...] " social history reviewed E&M reviewed today Jeanethbianca Gutierrez " sexual orientation Heterosexual Jeaneth Gutierrez " assessment of health Adequate Jeaneth Gutierrez literacy ([facility] 2014 Standards, 3C10) " is there any chance that No Jeaneth Gutierrez you could be ? " passive cigarette smoke No Jeaneth Gutierrez exposure " smoking status never smoker Jeaneth Allenon " Exercise Program Referral T Jeaneth Gutierrez " Weight Management T Jeaneth Gutierrez Counseling Provided " Nutrition intervention T Jeaneth Gutierrez patient considered to be No Jeaneth Gutierrez homeless " drug use, illicit Never Jeaneth Gutierrez " alcohol use Never Jeaneth Gutierrez " social history reviewed E&M reviewed today Jeaneth Gutierrez " sexual orientation Heterosexual Jeanethbianca Gutierrez " assessment of health Adequate Jeaneth Gutierrez literacy ([facility] 2014 Standards, 3C10) " is there any chance that No Jeaneth Gutierrez you could be ? " passive cigarette smoke No Jeaneth Gutierrez exposure " smoking status never smoker Jeaneth Allenon " Exercise Program Referral T Jeaneth Gutierrez " Weight Management T Jeaneth Gutierrez Counseling Provided " Nutrition intervention T Jeaneth Gutierrez " assessment of health Adequate Charla Minor literacy ([facility] 2014 Standards, 3C10) " is there any [...] mood and affect no depression, anxiety, Chelsie [place] E&M or agitation " Generalized Anxiety Disorder 0 Mae Oneil Questionnaire - Question 2 " Generalized Anxiety Disorder 0 Mae Oneil Questionnaire - Question 1 assessment of mood and affect no depression, anxiety, Chelsie Prachi E&M or agitation assessment of mood and affect no depression, anxiety, Chelsie [place] E&M or agitation Generalized Anxiety Disorder 0 Charla Minor Questionnaire - Question 2 " Generalized Anxiety Disorder 0 Charla Minor Questionnaire - Question 1 MEDICAL EQUIPMENT No Information Available FAMILY HISTORY No Information Available INSURANCE PROVIDERS Payer name Policy type / Coverage type Covered democrat ID Medicaid Pending Medicaid Title X Other [id number] Family Planning Program Medicaid [id number] Sliding Fee - Cat 1 [employer] insurance [employer] [id number] ADVANCE DIRECTIVES No Information Available TREATMENT PLAN [...] 1st trimester Est Patient Exp Problem - 64544 Ultrasound of Uterus- 1st trimester New Patient Detailed - 82081 New Patient Detailed - 26312 Vaccines Ordered - Print Consent/Declination Forms Est Patient Exp Problem - 20695 Est Patient Exp Problem - 12468 Urinalysis - Dip only - In House Est Patient Exp Problem - 64657 Urinalysis - Dip only - In House Urinalysis - - In House IUD Removal New Patient Detailed - 94960 HISTORY OF PROCEDURES Procedure Date Procedure Name Provider Procedure Notes Status Ultrasound of Martell Jensen completed Uterus- 1st trimester Ultrasound of Martell Jensen completed Uterus- 1st trimester Vaccines Ordered - Print Martell Jensen completed Consent/Declination Forms Urinalysis - Dip only - In Chelsie Baumanrant completed [place] Urinalysis - Dip only - In Chelsie Velarde completed [place] Urinalysis - - In Chelsie Velarde completed [place] IUD Removal Chelsie Velarde completed GOALS No Information Available HEALTH CONCERNS No Information Available
--- OUTSIDE RECORDS SUMMARY | 2019-08-27 19:04 | XMS REPORT ---
:1990 Author Name Admin, [place] Address Unavailable Unavailable , PROBLEMS Condition Status Date Provider Notes BMI 26 - 26.9, adult active Martell Jensen 13 weeks gestation of active Martell Jensen Supervision [...] Location Encounter Diagnosis - Ambulatory Martell Jensen [facility] 13 weeks gestation of Encounter Martell Jensen pregnancyBMI 26 - 26.9, Natyjose Michel adult - Ambulatory Alicia Davisay [facility] OB UNK Encounter - Ambulatory Martlel Jensen [facility] OB UNK Encounter Martell Jensen [facility] - Ambulatory Martell Jensen [facility] OB BMI 24.0-24.9IUD Encounter Martell Jensen removalVaginal Rbiseyda Servin dischargePelvic [id number] weeks gestation of - Ambulatory Martell Jensen [facility] OB UNK Encounter Martell Jensen [facility] - Ambulatory Martell Jensen [facility] OB UNK Encounter Martell Jensen [facility] - Ambulatory Martell Jensen [facility] OB UNK Encounter Martell Jensen [facility] - Ambulatory Martell Jensen [facility] OB UNK Encounter Martell Jensen [facility] - Ambulatory Martell Jensen [facility] OB UNK Encounter Martell Jensen [facility] - Ambulatory Martell Jensen [facility] OB UNK Encounter Martell Jensen - Ambulatory Martell Jensen [facility] OB BMI 25 - 25.9, Encounter Martell Jensen adultSupervision of Genesis Otto normal multigravida , first [id number] weeks gestation of - Ambulatory Chelsie Winn [place] UNK Encounter 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 - Ambulatory Chelsie Winn [place] UNK Encounter Mae 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 Oneil - Ambulatory Chelsie Winn [place] UNK Encounter 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 - Ambulatory Chelsie Prachi [place] UNK Encounter [facility] 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 - Ambulatory Chelsie Winn [place] UNK Encounter Link[facility] - Ambulatory Chelsie Winn [place] UNK Encounter Link[facility] - Ambulatory Chelsie Prachi [place] UNK Encounter [facility] - Ambulatory Chelsie Winn [place] UNK Encounter 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 - Ambulatory Shanell Casper [facility] OB UNK Encounter - Ambulatory Chelsie Winn [place] UNK Encounter Jeaneth Gutierrez 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 - Ambulatory Chelsie Prachi [place] UNK Encounter - Ambulatory Chelsie Prachi [place] UNK Encounter [facility]Logic - Ambulatory Chelsie Winn [place] UNK Encounter 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 - Ambulatory Chelsie Prachi [place] UNK Encounter 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 - Ambulatory Chelsie Prachi [place] Nausea Encounter Regine Mcmullen 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 Minda Eric Gutierrez - Ambulatory Mae [place] UNK Encounter Oneil Chelsie 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 Winn - Ambulatory Chelsie Winn [place] UNK Encounter - Ambulatory Chelsie Prachi [place] UNK Encounter - Ambulatory Chelsie Prachi [place] UNK Encounter LinkLogic - Ambulatory Chelsie Prachi [place] UNK Encounter [facility] - Ambulatory Chelsie Prachi [place] UNK Encounter 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 - Ambulatory Chelsie Winn [place] BMI 24.0-24.9IUD Encounter Charla Zuniga 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 removalVaginal dischargePelvic pain VITAL SIGNS Date Observation Value Provider weight change since last visit 3.20 lbs. Naty Michel " blood pressure, diastolic 72 mm[Hg] Naty Michel " blood pressure, systolic 112 mm[Hg] Naty Michel " pulse rate E&M 87 /min Naty Michel " temperature site oral Naty Michel " temperature E&M 98.8 [degF] Naty Michel " weight E&M 151.2 lbs. Naty Michel " height E&M 64 [in_i] Naty Michel weight change since last visit 2.60 lbs. [...] cm Genesis Otto " temperature site oral Genesislexa Colónes " height E&M 64 [in_i] Genesis Otto blood pressure, diastolic 64 mm[Hg] Mae Riggs " blood pressure, systolic 106 mm[Hg] Mae iRggs " oxygen saturation, oximetry 99 % Mae Riggs " pulse rate E&M 61 /min Mae Riggs " temperature E&M 98.2 [degF] Mae Riggs " method used to obtain blood pressure automatic Mae Riggs " Blood Pressure Position 01 sitting Mae Riggs " blood pressure, site #1 left arm Mae Riggs " temperature site oral Mae Riggs " height E&M 64 [in_i] Mae Riggs " height in centimeters E&M 162.56 cm Mae Riggs " weight E&M 141 lbs. Mae Riggs " weight in kilograms E&M 64.09 kg Mae Riggs oxygen saturation, oximetry 98 % Jeaneth [...] " Blood Pressure Position 01 sitting Jeaneth Matt " blood pressure, site #1 left arm Jeaneth Gutierrez " temperature site oral Jeaneth Gutierrez " height E&M 64 [in_i] Jeaneth Gutierrez " height in centimeters E&M 162.56 cm Jeaneth Gutierrez oxygen saturation, oximetry 98 % Jeaneth Gutierrez " blood pressure, diastolic 89 mm[Hg] Jeaneth Gutierrez " blood pressure, systolic 120 mm[Hg] Jeaneth Allenon " pulse rate E&M 70 /min Jeaneth Gutierrez " temperature E&M 98.0 [degF] Jeaneth Allenon " weight E&M 142.25 lbs. Jeaneth Gutierrez " weight in kilograms E&M 64.66 kg Jeanteh Gutierrez " method used to obtain blood pressure automatic Jeaneth Gutierrez " Blood Pressure Position 01 sitting Jeaneth Gutierrez " blood pressure, site #1 left arm Jeaneth Gutierrez " temperature site oral Jeaneth Gutierrez " height E&M 64 [in_i] Jeaneth Gutierrez " height in centimeters E&M 162.56 cm Jeaneth Gutierrez respiratory rate E&M 17 /min Charla Minor " pulse rate E&M 71 /min Charla Minor " oxygen saturation, oximetry 98 % Charla Minor " blood pressure, diastolic 70 mm[Hg] Charla Minor " blood pressure, systolic 107 mm[Hg] Charla Minor " temperature E&M 98.2 [degF] Charla Minor " weight E&M 141 lbs. Charla Minor " weight in kilograms E&M 64.09 kg Charla Minor " height in centimeters E&M 162.56 cm Charla Minor " height E&M 64 [in_i] Charla Minor " method used to obtain blood pressure automatic Charla Minor " Blood Pressure Position 01 sitting Charla Minor " blood pressure, site #1 right arm Charla Minor " temperature site oral Charla Minor Allergies No Known Allergy Information REASON FOR REFERRAL No Information Available RESULTS Date Observation Value Provider Reference Interpretation Location Range Neisseria Negative [facility] Negative /30 gonorrhoeae DNA probe " chlamydia DNA probe Negative [facility] Negative urine culture No growth [facility] urine culture No growth [facility] hepatitis B surface Negative [facility] Negative /30 antigen " Rh antibody Negative [facility] Negative [...] yellow Jeaneth Gutierrez urine culture No growth [facility] " Neisseria Negative [facility] Negative gonorrhoeae DNA probe " chlamydia DNA probe Negative [facility] Negative specific gravity, 1.020 Jeaneth Gutierrez /11 urine " pH, urine, 6.0 Jeaneth Gutierrez [...] MEDICATION USE Medication Instructions Dates Provider Comments FLAGYL 500 MG ORAL 1 Tab PO BID x 7 Days Martell Jensen TABLET KEFLEX 500 MG ORAL 1 tab By Mouth Three - Martell Jensen CAPSULE Times a Day x 5 days FLAGYL 500 MG ORAL 1 Tab PO BID x 7 Days - Martell Jensen TABLET SOCIAL HISTORY Date Observation Value Provider Have you traveled to any No Naty Michel zika virus infected areas? Have you traveled to any No Briseyda Servin zika virus infected areas? smoking/tobacco cessation, Complete Martell Jensen patient education and counseling " currently in sexual only one partner at a time Genesis Otto relationship with " cat exposure during no Genesis Otto " Have you traveled to any No Genesis Otto zika virus infected areas? drug use, illicit Never Mae Oneil " alcohol use Never Mae Oneil " social history reviewed E&M reviewed today Mae Riggs " sexual orientation Heterosexual Mae Oneil " assessment of health Adequate Mae Oneil literacy ([facility] 2014 Standards, 3C10) " is there [...] assessment of health Adequate Jeaneth Gutierrez literacy ([facility] 2014 Standards, 3C10) " is there [...] assessment of health Adequate Jeaneth Gutierrez literacy ([facility] 2014 Standards, 3C10) " is there any chance that No Jeaneth Gutierrez you could be ? " passive cigarette smoke No Jeaneth Gutierrez exposure " smoking status never smoker Jeaneth Gutierrez " Exercise Program Referral T Jeaneth Gutierrez " Weight Management T Jeaneth Gutierrez Counseling Provided " Nutrition intervention T Jeaneth Gutierrez " assessment of health Adequate Charla Minor literacy ([facility] 2014 Standards, 3C10) " is there [...] insight assessment of mood and affect no depression [...] mood and affect no depression, anxiety, Chelsie Winn E&M or agitation assessment of mood and affect no depression, anxiety, Chelsie Prachi E&M or agitation Generalized Anxiety Disorder 0 Charla Minor Questionnaire - Question 2 " Generalized Anxiety Disorder 0 Charla Minor Questionnaire - Question 1 MEDICAL EQUIPMENT No Information Available FAMILY HISTORY No Information Available INSURANCE PROVIDERS Payer name Policy type / Coverage type Covered alliance party ID Medicaid Pending Medicaid [id number] Title X Other [id number] Family Planning Program Medicaid [id number] Sliding Fee - Cat [address] [place] [id number] ADVANCE DIRECTIVES No Information Available TREATMENT PLAN Date Name Vaginitis/Vaginosis, DNA Probe (Affirm) ([facility]) Urine Culture, Routine RPR, Rfx Qn RPR/Confirm [...] Vaginitis/Vaginosis, DNA Probe (Affirm) ([facility]) Gc/Ct/Trich - Est Patient Exp Problem - 67525 Ultrasound of Uterus- 1st trimester Est Patient Exp Problem - 28389 Ultrasound of Uterus- 1st trimester New Patient Detailed - 88576 New Patient Detailed - 40592 Vaccines Ordered - Print Consent/Declination Forms Est Patient Exp Problem - 68190 Est Patient Exp Problem - 21862 Urinalysis - Dip only - In House Est Patient Exp Problem - 89045 Urinalysis - Dip only - In House Urinalysis - - In House IUD Removal New Patient Detailed - 81130 HISTORY OF PROCEDURES Procedure Date Procedure Name Provider Procedure Notes Status Ultrasound of Martell Jensen completed Uterus- 1st trimester Ultrasound of Martell Jensen completed Uterus- 1st trimester Vaccines Ordered - Print Martell Jensen completed Consent/Declination Forms Urinalysis - Dip only - In Chelsie Winn completed House Urinalysis - Dip only - In Chelsie Winn completed House Urinalysis - - In Chelsie Winn completed House IUD Removal Chelsie Winn completed GOALS No Information Available HEALTH CONCERNS No Information Available
--- OUTSIDE RECORDS SUMMARY | 2019-08-27 19:05 | XMS REPORT ---
:1990 Author Name Admin, [place] Address Unavailable Unavailable , PROBLEMS Condition Status [...] Location Encounter Diagnosis - Ambulatory Martell Jensen [facility] OB 13 weeks gestation of Encounter Martell Jensen pregnancyBMI 26 - 26.9, Naty Michel adult - Ambulatory Alicia Davisay [facility] OB UNK Encounter - Ambulatory Martell Jensen [facility] OB UNK Encounter Martell Jensen [facility] - Ambulatory Martell Jensen [facility] OB BMI 24.0-24.9IUD Encounter Martell Jensen removalVaginal Briseyda Servin dischargePelvic [id number] weeks gestation of - Ambulatory Martell Jensen [facility] OB UNK Encounter Martell Jensen [facility] - Ambulatory Martell Jensen [facility] OB UNK Encounter Martell Jensen [facility] - Ambulatory Martell Jensen [facility] OB UNK Encounter Martell Jensen [facility] - Ambulatory Martell Jensen [facility] OB UNK Encounter Martell Jensen [facility] - Ambulatory Martell Jensen [facility] OB UNK Encounter Martell Jensen [facility] - Ambulatory Martell Jensen [facility] OB UNK Encounter Martell Jensen - Ambulatory Martell Jensen [facility] OB BMI 25 - 25.9, Encounter Martell Jensen adultSupervision of Genesis Otto normal multigravida , first [id number] weeks gestation of - Ambulatory Chelsie [place] UNK Encounter RIGGING UP WORKER - Ambulatory Chelsie [place] UNK Encounter Mea RIGGING UP WORKER Oneil - Ambulatory Chelsie [place] UNK Encounter RIGGING UP WORKER - Ambulatory Chelsie Prachi [place] UNK Encounter LinkLogic RIGGING UP WORKER - Ambulatory Chelsie [place] UNK Encounter LinkLogic - Ambulatory Chelsie [place] UNK Encounter [facility]ic - Ambulatory Chelsie Prachi [place] UNK Encounter [facility]Logic - Ambulatory Chelsie [place] UNK Encounter RIGGING UP WORKER - Ambulatory Shanell Casper [facility] OB UNK Encounter - Ambulatory Chelsie [place] UNK Encounter Jeaneth Gutierrez RIGGING UP WORKER - Ambulatory Chelsie Prachi [place] UNK Encounter - Ambulatory Chelsie Prachi [place] UNK Encounter LinkLogic - Ambulatory Chelsie [place] UNK Encounter RIGGING UP WORKER - Ambulatory Chelsie Prachi [place] UNK Encounter RIGGING UP WORKER - Ambulatory Chelsie Prachi [place] Nausea Encounter Regine Mcmullen RIGGING UP WORKER Minda Eric Gutierrez - Ambulatory Mae [place] UNK Encounter Oneil Chelsie RIGGING UP WORKER [place] - Ambulatory Chelsie [place] UNK Encounter - Ambulatory Chelsie Prachi [place] UNK Encounter - Ambulatory Chelsie Prachi [place] UNK Encounter LinkLogic - Ambulatory Chelsie Prachi [place] UNK Encounter [facility]ic - Ambulatory Chelsie Prachi [place] UNK Encounter RIGGING UP WORKER - Ambulatory Chelsie [place] BMI 24.0-24.9IUD Encounter Charla Zuniga RIGGING UP WORKER removalVaginal dischargePelvic pain VITAL SIGNS Date Observation [...] assessment of health Adequate Mae Oneil literacy ([facility] 2014 Standards, 3C10) " is there any [...] assessment of health Adequate Jeaneth Gutierrez literacy ([facility] 2014 Standards, 3C10) " is there any [...] assessment of health Adequate Jeaneth Gutierrez literacy ([facility] 2014 Standards, 3C10) " is there any chance that No Jeaneth Gutierrez you could be ? " passive cigarette smoke No Jeaneth Gutierrez exposure " smoking status never smoker Jeaneth Gutierrez " Exercise Program Referral T Jeaneth Gutierrez " Weight Management T Jeaneth Gutierrez Counseling Provided " Nutrition intervention T Jeaneth Gutierrez " assessment of health Adequate Charla Minor literacy ([facility] 2014 Standards, 3C10) " is there any [...] mood and affect no depression, anxiety, Chelsie [place] E&M or agitation assessment of mood and affect no depression, anxiety, Chelsie Prachi E&M or agitation Generalized Anxiety Disorder 0 Charla Minor Questionnaire - Question 2 " Generalized Anxiety Disorder 0 Charla Minor Questionnaire - Question 1 MEDICAL EQUIPMENT No Information Available FAMILY HISTORY No Information Available INSURANCE PROVIDERS Payer name Policy type / Coverage type Covered constitution party ID Medicaid Pending Medicaid [id number] Title X Other [id number] Family Planning Program Medicaid [id number] Sliding Fee - Cat 1 [email or web address] insurance [place] [id number] ADVANCE DIRECTIVES No Information Available TREATMENT PLAN [...] Gc/Ct/Trich - Est Patient Exp Problem - 68597 Ultrasound of Uterus- 1st trimester Est Patient Exp Problem - 45102 Ultrasound of Uterus- 1st trimester New Patient Detailed - 68249 New Patient Detailed - 48074 Vaccines Ordered - Print Consent/Declination Forms Est Patient Exp Problem - 36164 Est Patient Exp Problem - 91894 Urinalysis - Dip only - In House Est Patient Exp Problem - 35240 Urinalysis - Dip only - In House Urinalysis - - In House IUD Removal New Patient Detailed - 25997 HISTORY OF PROCEDURES Procedure Date Procedure Name Provider Procedure Notes Status Ultrasound of Martell Jensen completed Uterus- 1st trimester Ultrasound of Martell Jensen completed Uterus- 1st trimester Vaccines Ordered - Print Martell Jensen completed Consent/Declination Forms Urinalysis - Dip only - In Chelsie [place] completed House Urinalysis - Dip only - In Chelsie [place] completed House Urinalysis - - In Chelsie [place] completed House IUD Removal Chelsie [place] completed GOALS No Information Available HEALTH CONCERNS No Information Available
[2019-08-27 20:02] LABS: Barbiturates NEGATIVE (NEGATIVE); Benzodiazepines NEGATIVE (NEGATIVE); Cocaine NEGATIVE (NEGATIVE); METHAMPHETAM NEGATIVE (NEGATIVE); Methadone NEGATIVE (NEGATIVE); Opiates NEGATIVE (NEGATIVE); Phencyclidine NEGATIVE (NEGATIVE); THC Cannibis NEGATIVE (NEGATIVE)
[2019-08-27 20:09] LABS: Absolute Lymphocytes (CBC) 2.5 K/uL (0.7-4.9); Basophils % 0.5 % (0-1.3); Hematocrit 33.8 % (36.0-45.0); Lymphocytes % 21.9 % (15.3-44.8)
--- NOTE | 2019-08-27 20:09 | RAD REPORT ---
EXAM DESCRIPTION: CT - Head Brain Wo Cont - 08/27/2019 7:57 pm CLINICAL HISTORY: NUMBNESS COMPARISON: No comparisons TECHNIQUE: Axial 5 mm thick images of the head were obtained without IV contrast. All CT scans are performed using dose optimization technique as appropriate and may include automated exposure control or mA/KV adjustment according to patient size. FINDINGS: No intracranial hemorrhage, mass, edema or shift of mid-line structures. No acute infarcti on changes seen. No abnormal extra-axial fluid collections. Ventricles are normal. Mastoid air cells and visualized portions of the paranasal sinuses are clear. No acute bony findings. Venous sinuses are not assessed on this study. IMPRESSION: Negative non-contrast CT head examination.
[2019-08-27 20:10] LABS: Protime INR 0.91
[2019-08-27 20:26] LABS: ALT/SGPT 31 U/L (12-78); AST/SGOT 17 U/L (15-37); Albumin 3.1 g/dL (3.4-5.0); Alkaline Phosphatase 52 U/L (45-117); BUN Blood Urea Nitrogen 9 mg/dL (7-18); Bicarbonate 24 mmol/L (21-32); Bilirubin Direct < 0.1 mg/dL (0-0.2); Bilirubin Total 0.2 mg/dL (0.2-1.0); Glucose Level 89 mg/dL (74-106); NT PRO-BNP 31 pg/mL (<125); Potassium 3.6 mmol/L (3.5-5.1); Protein, Total 7.2 g/dL (6.4-8.2); Sodium Level 138 mmol/L (136-145); Troponin (Emerg Dept Use Only) < 0.02 ng/mL (0.0-0.045)
--- NOTE | 2019-08-27 20:33 | EDPHYS ---
Physician Documentation [facility] Name: Mouna Riggs Age: 28 yrs Sex: Female : 1990 Arrival Date: 08/27/2019 Time: 19:00 Bed 7 Private MD: ED Physician Skip Moreno HPI: 08/26 19:41 This 28 yrs old Female presents to ER via Ambulatory with complaints of kb Numbness Of Face. 19:42 The patient's problem is reported as paresthesias, in right side of face, in left side kb of face. Onset: The symptoms/episode began/occurred last night. Duration: This was a single incident. Context: occurred at home. The symptoms are alleviated by nothing. The symptoms are aggravated by nothing. Associated signs and symptoms: The patient has no apparent associated signs or symptoms. Severity of symptoms: At their worst the symptoms were mild in the emergency department the symptoms have resolved. Patient's baseline: Neuro: alert and fully oriented, Motor: no deficits, Ambulation: walks without assistance, Speech: normal. The patient has experienced similar episodes in the past, a few times. The patient has not recently seen a physician. Pt reports numbness of entire face that started last night and resolved sometime in the middle of the night. Denies any symptoms throughout the day and has no complaints at this time. 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 - Social history:: Patient/guardian denies using alcohol, street drugs, tobacco products, Smoking status: unknown. ROS: 19:39 Constitutional: Negative for fever, chills, and weight loss, ENT: Negative for injury, kb pain, and discharge, Neck: Negative for injury, pain, and swelling, Cardiovascular: Negative for chest pain, palpitations, and edema, Respiratory: Negative for shortness of breath, cough, wheezing, and pleuritic chest pain, Abdomen/GI: Negative for abdominal pain, nausea, vomiting, diarrhea, and constipation, Back: Negative for injury and pain, MS/Extremity: Negative for injury and deformity, Skin: Negative for injury, rash, and discoloration, Neuro: Negative for headache, weakness, numbness, tingling, and seizure. Exam: 19:39 Constitutional: This is a well developed, well nourished patient who is awake, alert, kb and in no acute distress. Head/Face: Normocephalic, atraumatic. ENT: Nares patent. No nasal discharge, no septal abnormalities noted. Tympanic membranes are normal and external auditory canals are clear. Oropharynx with no redness, swelling, or masses, exudates, or evidence of obstruction, uvula midline. Mucous membranes moist. Neck: Trachea midline, no thyromegaly or masses palpated, and no cervical lymphadenopathy. Supple, full range of motion without nuchal rigidity, or vertebral point tenderness. No Meningismus. Chest/axilla: Normal chest wall appearance and motion. Nontender with no deformity. No lesions are appreciated. Cardiovascular: Regular rate and rhythm with a normal S1 and S2. No gallops, murmurs, or rubs. Normal PMI, no JVD. No pulse deficits. Respiratory: Lungs have equal breath sounds bilaterally, clear to auscultation and percussion. No rales, rhonchi or wheezes noted. No increased work of breathing, no retractions or nasal flaring. Abdomen/GI: Soft, non-tender, with normal bowel sounds. No distension or tympany. No guarding or rebound. No evidence of tenderness throughout. Skin: Warm, dry with normal turgor. Normal color with no rashes, no lesions, and no evidence of cellulitis. MS/ Extremity: Pulses equal, no cyanosis. Neurovascular intact. Full, normal range of motion. Neuro: Awake and alert, GCS 15, oriented to person, place, time, and situation. Cranial nerves II-XII grossly intact. Motor strength 5/5 in all extremities. Sensory grossly intact. Cerebellar exam normal. Normal gait. 19:39 ECG was reviewed by the Attending Physician. 20:33 Radiologist reports: no acute findings kb Vital Signs: 19:06 BP 104 / 65; Pulse 82; Resp 17; Temp 98.4; Pulse Ox 100% ; Weight 70.31 kg; Height 5 ll1 ft. 4 in. (162.56 cm); Pain 0/10; 20:40 BP 113 / 71; Pulse 80; Resp 16 S; Pulse Ox 100% on R/A; Pain 0/10; jd3 19:06 Body Mass Index 26.61 (70.31 kg, 162.56 cm) ll1 MDM: 19:12 Patient medically screened. [facility] 19:39 Data reviewed: vital signs, nurses notes. Data interpreted: Pulse oximetry: on room air kb is 100 %. Interpretation: normal. 20:13 Counseling: I had a detailed discussion with the patient and/or guardian regarding: the kb historical points, exam findings, and any diagnostic results supporting the discharge/admit diagnosis, lab results, radiology results, the need for outpatient follow up, a family practitioner, to return to the emergency department if symptoms worsen or persist or if there are any questions or concerns that arise at home. 08/26 19:12 Order name: Basic Metabolic Panel; Complete Time: 20:[address] [facility] 08/26 19:12 Order name: CBC with Diff; Complete Time: 20:[address] [facility] 08/26 19:12 Order name: LFT's; Complete Time: 20:[address] [facility] 08/26 19:12 Order name: Magnesium; Complete Time: 20:[address] [facility] 08/26 19:12 Order name: NT PRO-BNP; Complete Time: 20:[address] [facility] 08/26 19:12 Order name: PT-INR; Complete Time: 20:[address] [facility] 08/26 19:12 Order name: Troponin (emerg Dept Use Only); Complete Time: 20:[address] [facility] 08/26 19:12 Order name: CT Head Brain wo Cont; Complete Time: 20:[address] [facility] 08/26 19:12 Order name: Urine Culture [facility] 08/26 19:12 Order name: UDS; Complete Time: 20:[address] [facility] 08/26 19:41 Order name: Urine Dipstick--Ancillary (enter results); Complete Time: 20:40 08/26 19:42 Order name: Urine --Ancillary (enter results); Complete Time: 20:40 08/26 19:12 Order name: EKG; Complete Time: 19:[address] [facility] 08/26 19:12 Order name: Cardiac monitoring; Complete Time: 19:[address] [facility] 08/26 19:12 Order name: EKG - Nurse/Tech; Complete Time: 19:[address] [facility] 08/26 19:12 Order name: IV Saline Lock; Complete Time: 19:[address] [facility] 08/26 19:12 Order name: Labs collected and sent; Complete Time: 19:[address] [facility] 08/26 19:12 Order name: O2 Per Protocol; Complete Time: 19:[address] [facility] 08/26 19:12 Order name: O2 Sat Monitoring; Complete Time: 19:[address] [facility] 08/26 19:12 Order name: Urine Dipstick-Ancillary (obtain specimen); Complete Time: 19:[address] [facility] 08/26 19:12 Order name: Urine Test (obtain specimen); Complete Time: 19:[address] [facility] EC:39 Rate is 75 beats/min. Rhythm is regular. QRS [place] is Normal. NE interval is normal at kb 158 msec. QRS interval is normal at 84 msec. QT interval is normal at 386 msec. Administered Medications: 19:20 CANCELLED (Physician Discretion): NS 0.9% 1000 ml IV at 1 bolus Per protocol; 1000 mL jd3 bolus Disposition: 08/27 07:39 Co-signature as Attending Physician, Skip Moreno MD I agree with the assessment and [facility] plan of care. Disposition: 08/27/19 20:32 Discharged to Home. Impression: Paresthesia of skin - resolved. - Condition is Stable. - Discharge Instructions: Paresthesia, [id number]. - Medication Reconciliation Form, Thank You Letter, Antibiotic Education, Prescription Opioid Use form. - Follow up: Emergency Department; When: As needed; Reason: Worsening of condition. Follow up: Private Physician; When: 2 - 3 days; Reason: Recheck today's complaints, Continuance of care, Re-evaluation by your physician. Signatures: Dispatcher [employer] [facility] Donna Magdaleno, SOLAR INSTALLATION SUPERVISOR-C SOLAR INSTALLATION SUPERVISOR-Skip Acosta MD MD cha Davies, Jonathon RN RN jd3 Colby Dumont RN RN ll1 Corrections: (The following items were deleted from the chart) 08/26 19:20 19:12 NS 0.9% 1000 ml IV at 1 bolus Per protocol; 1000 mL bolus ordered. [facility] jd3 19:35 19:13 Chest Single View+RAD.RAD.BRZ ordered. [facility] EDND 20:41 20:32 08/27/2019 20:32 Discharged to Home. Impression: Paresthesia of skin - resolved. jd3 Condition is Stable. Forms are Medication Reconciliation Form, Thank You Letter, Antibiotic Education, Prescription Opioid Use. Follow up: Emergency Department; When: As needed; Reason: Worsening of condition. Follow up: Private Physician; When: 2 - 3 days; Reason: Recheck today's complaints, Continuance of care, Re-evaluation by your physician. kb
--- NOTE | 2019-08-27 20:33 | ER ---
Nurse's Notes [facility] Name: Mouna Riggs Age: 28 yrs Sex: Female : 1990 Arrival Date: 08/27/2019 Time: 19:00 Bed 7 Private MD: Diagnosis: Paresthesia of skin-resolved Presentation: 08/26 19:06 Chief complaint: Patient states: States her whole face felt numb last night for about 6 ll1 hours. Resolved now. Sent by OB MD for eval. 20 weeks . G5, P4. No fever. Coronavirus screen: Proceed with normal triage. Patient denies a cough. Patient denies shortness of breath or difficulty breathing. Patient denies measured and/or subjective temperature greater than 100.4F prior to today's visit. Patient denies travel on a cruise ship or to a country the [facility] currently lists as an affected area. Patient denies contact with known and/or suspected case of COVID-19. Ebola Screen: Patient denies travel to an Ebola-affected area in the 21 days before illness onset. Initial Sepsis Screen: Does the patient meet any 2 criteria? No. Patient's initial sepsis screen is negative. Risk Assessment: Do you want to hurt yourself or someone else? Patient reports no desire to harm self or others. Onset of symptoms was August 26, 2019. 19:06 Method Of Arrival: Ambulatory ll1 19:06 Acuity: CHRISYT 3 ll1 19:59 Initial Sepsis Screen: Does the patient have a suspected source of infection? No. jd3 Patient's initial sepsis screen is negative. 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 - Social history:: Patient/guardian denies using alcohol, street drugs, tobacco products, Smoking status: unknown. Screenin:59 Abuse screen: Denies threats or abuse. Nutritional screening: No deficits noted. jd3 Tuberculosis screening: No symptoms or risk factors identified. Fall Risk Ambulatory Aid- None/Bed Rest/Nurse Assist (0 pts). Gait- Normal/Bed Rest/Wheelchair (0 pts) Mental Status- Oriented to own ability (0 pts). Total Up Fall Scale indicates No Risk (0-24 pts). Assessment: 19:58 General: Appears in no apparent distress. comfortable, Behavior is calm, cooperative, jd3 appropriate for age, anxious. Pain: Denies pain. Neuro: Level of Consciousness is awake, alert, obeys commands, Oriented to person, place, time, situation, Denies weakness dizziness, numbness. Cardiovascular: Denies chest pain, Capillary refill < 3 seconds Patient's skin is warm and dry. Respiratory: Airway is patent Respiratory effort is even, unlabored, Respiratory pattern is regular, symmetrical, Denies cough, shortness of breath. GI: No signs and/or symptoms were reported involving the gastrointestinal system. Patient currently denies abdominal pain, constipation, diarrhea, nausea, vomiting. : No signs and/or symptoms were reported regarding the genitourinary system. EENT: No signs and/or symptoms were reported regarding the EENT system. Derm: Skin is intact, Skin is dry, Skin is normal, Skin temperature is warm. Musculoskeletal: Circulation, motion, and sensation intact. Range of motion: intact in all extremities. 20:40 Reassessment: Patient appears in no apparent distress at this time. Patient and/or jd3 family updated on plan of care and expected duration. Pain level reassessed. Patient is alert, oriented x 3, equal unlabored respirations, skin warm/dry/pink. Patient denies pain at this time. Vital Signs: 19:06 BP 104 / 65; Pulse 82; Resp 17; Temp 98.4; Pulse Ox 100% ; Weight 70.31 kg; Height 5 ll1 ft. 4 in. (162.56 cm); Pain 0/10; 20:40 BP 113 / 71; Pulse 80; Resp 16 S; Pulse Ox 100% on R/A; Pain 0/10; jd3 19:06 Body Mass Index 26.61 (70.31 kg, 162.56 cm) ll1 ED Course: 19:00 Patient arrived in ED. mr 19:08 Triage completed. ll1 19:09 Arm band placed on Patient placed in an exam room, on a stretcher. ll1 19:13 [facility]C [facility] kb 19:13 Skip Moreno MD is Attending Physician. kb 19:22 All Paul, RN is Primary Nurse. jd3 19:33 UDS Sent. jd3 19:33 Urine Culture Sent. jd3 19:57 CT Head Brain wo Cont In Process Unspecified. EDMS 19:57 Initial lab(s) drawn, by me, sent to lab. Inserted saline lock: 20 gauge in right jd3 antecubital area, using aseptic technique. Blood collected. 20:00 Patient has correct armband on for positive identification. Placed in gown. Bed in low jd3 position. Call light in reach. Side rails up X 1. Adult w/ patient. site monitor on. Pulse ox on. NIBP on. 20:40 No provider procedures requiring assistance completed. IV discontinued, intact, jd3 bleeding controlled, No redness/swelling at site. Pressure dressing applied. Administered Medications: 19:20 CANCELLED (Physician Discretion): NS 0.9% 1000 ml IV at 1 bolus Per protocol; 1000 mL jd3 bolus Outcome: 20:32 Discharge ordered by MD. kb 20:40 Discharged to home ambulatory. jd3 20:40 Condition: stable 20:40 Discharge instructions given to patient, Instructed on discharge instructions, follow up and referral plans. Demonstrated understanding of instructions, follow-up care. 20:41 Patient left the ED. jd3 Signatures: Dispatcher [employer] [facility] Donna Magdaleno, JAIME AGRICULTURAL PRODUCE SORTER-Kati Sanchez mr All Paul, RN RN jColby Chavarria RN RN ll1 Corrections: (The following items were deleted from the chart) 19:30 19:06 Acuity: CHRISTY 4 ll1 ll1
[2019-08-27 20:37] LABS: Urine Blood NEGATIVE (NEG); Urine Glucose NEGATIVE (NEG); Urine Specific Gravity 1.025 (1.005-1.030)
[2019-08-27 20:37] LABS: Urine Specific Gravity 1.025 (1.005-1.030)
[2019-08-27 20:38] LABS: Urine Protein NEGATIVE (NEG)
[2019-08-27 20:51] VITALS: TEMP 98.4; O2SAT 100
[2019-08-27 20:53] VITALS: BP 113/71
--- NOTE | 2019-08-28 10:42 | EKG ---
Test Date: 2019-08-27 Test Time: 19:32:02 Tube Room Cashier: DARYL MEASUREMENT RESULTS: Intervals: Rate: 75 NV: 158 QRSD: 84 QT: 386 QTc: 431 [place]: P: 28 NV: 158 QRS: 41 T: 32 INTERPRETIVE STATEMENTS: Normal sinus rhythm Normal ECG No previous ECG available for comparison Electronically Signed On 08-28-19 10:41:39 CDT by Jerome Hutchinson
== END 2019-08-27 20:41 | disposition home or self-care (01) ==
LOC: ER 18:58
DX: O26.892 Other specified pregnancy related conditions, second trimester (principal); Z3A.20 20 weeks gestation of pregnancy
CPT/HCPCS: 36415; 70450; 80048; 80076; 80307; 81003; 81025; 83735; 83880; 84484; 85025; 85610; 87086; 87088; 93005; 99284